=== PATIENT | male | born 2000 | race Caucasian/White ===

== ENCOUNTER 2021-10-27 10:15 | Emergency (ER) | payer OTHER ==
[~2021-10-27 10:15] MED LIST: HYDROCODON-ACE1 EAC4 PO; IBUPROFEN600 MG PO
[2021-10-27 11:14] LABS: HEMOGLOBIN 17.6 gm/dl (14.0-17.5); RED BLOOD COUNT 5.5 M/UL (4.20-5.50); WHITE BLOOD COUNT 9.3 K/UL (4.5-11.0)
[2021-10-27 11:40] LABS: BUN/CREATININE RATIO 14 (0-10)
== END 2021-10-27 13:35 | disposition home or self-care (01) ==
LOC: ER1 10:15
PROVIDERS: Nurse Practitioner
DX: R20.2 Paresthesia of skin (principal); F17.290 Nicotine dependence, other tobacco product, uncomplicated
CPT/HCPCS: 71045; 80053; 80307; 81001; 83735; 85025; 99284